=== PATIENT | female | born 1945 | race Hispanic/Latino ===

== ENCOUNTER 2017-07-29 06:50 | Day surgery (SDC) | payer OTHER ==
[~2017-07-29] VITALS: Ht 152.4 cm; Wt 72.8 kg
[~2017-07-29 06:50] MED LIST: AEC81 PO; AMLO5TAB2 PO; CETI10CA5 PO; CHOL500051 PO; LEVO50TA11 PO; NAPR220T57 PO; OMEG-138 PO; QUIN40TA19 PO; SODIUM CHLORIDE 0.9% 1000ML 1,000 ML IV ONE
[2017-07-29 07:13] VITALS: BP 150/83
[2017-07-29 08:41] VITALS: BP 116/77
== END 2017-07-29 09:15 | disposition home or self-care (01) ==
LOC: DAH 06:50
PROVIDERS: ATTEND Internal Medicine Gastroenterology
DX: R19.5 Other fecal abnormalities (principal); K57.30 Diverticulosis of large intestine without perforation or abscess without bleeding; I10 Essential (primary) hypertension; E03.9 Hypothyroidism, unspecified; M19.90 Unspecified osteoarthritis, unspecified site; E66.9 Obesity, unspecified; Z68.31 Body mass index [BMI] 31.0-31.9, adult; Z86.73 Personal history of transient ischemic attack (TIA), and cerebral infarction without residual deficits; Z79.899 Other long term (current) drug therapy; Z90.49 Acquired absence of other specified parts of digestive tract
CPT/HCPCS: 45378; 93005; A4606; J7030

== ENCOUNTER 2017-11-17 11:39 | Observation (INO) | payer OTHER ==
[~2017-11-17] VITALS: Ht 149.9 cm; Wt 71.9 kg
[~2017-11-17 11:39] MED LIST changes: -SODIUM CHLORIDE 0.9% 1000ML 1,000 ML IV ONE
[2017-11-17] MEDS ORDERED: ACETAMINOPHEN 325 MG TAB ONE (11:58)
[2017-11-17 14:06] LABS: BASOPHILS % (AUTO) 0.4 % (0.0-5.0); EOSINOPHILS % (AUTO) 0.2 % (0.0-8.0); LYMPHOCYTES % (AUTO) 11.5 % (21.0-51.0); MEAN CORPUSCULAR HEMOGLOBIN 27.1 pg (27.0-33.0); MEAN CORPUSCULAR HGB CONC 34.1 g/dL (32.0-36.0); MEAN CORPUSCULAR VOLUME 79.7 fL (79-99); MONOCYTES % (AUTO) 6.2 % (3.0-13.0); NEUTROPHILS % (AUTO) 81.7 % (40.0-77.0); PLATELET COUNT (AUTO) 264 K/uL (130-400); RED BLOOD CELL COUNT(AUTO) 4.65 MIL/uL (4.00-5.50); RED CELL DISTRIBUTION WIDTH 14.8 % (11.0-15.5)
[2017-11-17 14:17] LABS: CREATININE 0.8 mg/dL (0.5-1.5); POTASSIUM 3.9 mmol/L (3.5-5.1)
[2017-11-17 14:22] LABS: ALBUMIN 3.5 g/dL (3.5-5.0); BILIRUBIN,TOTAL 0.2 mg/dL (0.2-1.0); TOTAL PROTEIN, SERUM 7.6 g/dL (6.0-8.3)
[2017-11-17 14:47] LABS: INR 1.05 (0.85-1.15); PARTIAL THROMBOPLASTIN TIME 27.8 SEC (26.3-35.5)
[2017-11-17 20:53] VITALS: BP 143/76
[2017-11-17] MEDS ORDERED: ATOR10 PO (21:59)
[2017-11-17] MEDS ORDERED: PNEUMOCOCCAL VACCINE POLYVALENT 0.5 ML/VIAL [PPV] IM ONE (23:00)
[2017-11-17 23:52] VITALS: BP 151/73
[2017-11-18 03:46] VITALS: BP 134/77
[2017-11-18 07:00] VITALS: BP 142/67
[2017-11-18 12:00] VITALS: BP 135/73
[2017-11-18 16:39] VITALS: BP 139/72
[2017-11-18] MEDS ORDERED: PNEUMOCOCCAL VACCINE POLYVALENT 0.5 ML/VIAL [PPV] ONE (18:05)
== END 2017-11-18 18:25 | disposition home or self-care (01) ==
LOC: EDH 11:39 → EDHIP 13:48 → 3AH 20:53
PROVIDERS: ADMIT Family Medicine; ATTEND Family Medicine
DX: S06.6X9A Traumatic subarachnoid hemorrhage with loss of consciousness of unspecified duration, initial encounter (principal); S06.2X9A Diffuse traumatic brain injury with loss of consciousness of unspecified duration, initial encounter; W07.XXXA Fall from chair, initial encounter; E03.9 Hypothyroidism, unspecified; E55.9 Vitamin D deficiency, unspecified; E78.5 Hyperlipidemia, unspecified; H91.13 Presbycusis, bilateral; I10 Essential (primary) hypertension; J30.9 Allergic rhinitis, unspecified; K21.9 Gastro-esophageal reflux disease without esophagitis; M19.90 Unspecified osteoarthritis, unspecified site; M79.7 Fibromyalgia; R32 Unspecified urinary incontinence; Y93.89 Activity, other specified; Y92.89 Other specified places as the place of occurrence of the external cause; Y99.8 Other external cause status; Z86.73 Personal history of transient ischemic attack (TIA), and cerebral infarction without residual deficits; Z98.49 Cataract extraction status, unspecified eye
CPT/HCPCS: 36415; 70450 ×2; 72125; 80053; 85025; 85610; 85730; 93005; 99285; G0378 ×29; 90732

== ENCOUNTER 2019-01-19 07:00 | Day surgery (SDC) | payer OTHER ==
[2019-01-16 09:29] VITALS: BP 166/81
[2019-01-16 09:38] LABS: BASOPHILS % (AUTO) 0.6 % (0.0-5.0); EOSINOPHILS % (AUTO) 2.5 % (0.0-8.0); HEMATOCRIT 36.8 % (36-48); LYMPHOCYTES % (AUTO) 34.6 % (21.0-51.0); MEAN CORPUSCULAR HEMOGLOBIN 26.5 pg (27.0-33.0); MEAN CORPUSCULAR HGB CONC 32.7 g/dL (32.0-36.0); MEAN CORPUSCULAR VOLUME 80.8 fL (79-99); MONOCYTES % (AUTO) 12.3 % (3.0-13.0); NUCLEATED RED BLOOD CELLS 0.1 % (0.0-0.19); PLATELET COUNT (AUTO) 232 K/uL (130-400); RED BLOOD CELL COUNT(AUTO) 4.56 MIL/uL (4.00-5.50); RED CELL DISTRIBUTION WIDTH 15.8 % (11.0-15.5); WHITE BLOOD COUNT (AUTO) 3.4 K/uL (4.8-10.8)
[2019-01-16 09:41] LABS: APPEARANCE,URINE Clear (CLEAR); BILIRUBIN,URINE Negative (NEGATIVE); COLOR,URINE Yellow (YELLOW); GLUCOSE, URINE (UA) Negative (NEGATIVE); KETONES,URINE Negative (NEGATIVE); LEUKOCYTE ESTERASE ,URINE Moderate (NEGATIVE); NITRATE,URINE Negative (NEGATIVE); OCCULT BLOOD,URINE Negative (NEGATIVE); PH,URINE 5.5 (5.0-8.0); PROTEIN,URINE Negative (NEGATIVE); UROBILINOGEN,URINE 0.2 mg/dL (0.2-1.0)
[2019-01-16 09:45] LABS: CREATININE 0.7 mg/dL (0.5-1.5); POTASSIUM 4.3 mmol/L (3.5-5.1)
[2019-01-16 09:52] LABS: BACTERIA,URINE Rare /HPF (None Seen); RBC,URINE 0-1 /HPF (0-1)
--- NOTE | 2019-01-16 09:58 | NUR ---
EKG INFORMED DR. SMITH OF ABNORMAL EKG. NO ORDERS GIVEN. PROCEED WITH PLANNED PROCEDURE.
--- NOTE | 2019-01-18 12:01 | NUR ---
faxed over labs to doctor [facility] office , pending new orders
[2019-01-19] VITALS (16 sets, daily range): BP systolic 103–155; BP diastolic 49–73
[~2019-01-19] VITALS: Ht 153.7 cm; Wt 75.3 kg
[2019-01-19] MEDS: CEFTRIAXONE SODIUM 1 GM IVP SCH ×2 (06:00→09:55)
[~2019-01-19 07:00] MED LIST changes: -AMLO5TAB2 PO; +AMLO5TAB9 PO; +ATOR10 PO; +BOTULINUM TOXIN TYPE A 100 UNITS/VIAL INJ SCH; -CETI10CA5 PO; -CHOL500051 PO; -NAPR220T57 PO; -OMEG-138 PO
[2019-01-19] MEDS ORDERED: LACTATED RINGERS 1000ML 1,000 ML IV ONE (08:10)
--- NOTE | 2019-01-19 08:34 | NUR ---
abt and sterile water taken with pt to or
[2019-01-19] MEDS ORDERED: PROPOFOL 10 MG/ML 20ML VIAL IV ONE (10:00)
[2019-01-19] MEDS ORDERED: FENTANYL CITRATE PF 50 MCG/1 ML 2ML VIAL ONE (10:00)
[2019-01-19] MEDS ORDERED: ONDANSETRON HCL 4 MG/2 ML VIAL ONE (10:01)
--- NOTE | 2019-01-19 11:25 | NUR ---
post op received pt from [facility], s/p cystoscopy botox injections, pt voided on arrival. pt awake and alert. denied any pain or discomforts. vs stable on arrival.
--- NOTE | 2019-01-19 11:48 | NUR ---
dc dc instructions given to pt spouse with rx, instructed to f/u with dr batista. and on new med regimen. verbalized understanding.
--- NOTE | 2019-01-19 11:50 | NUR ---
dc pt dc home via wc/ no distress noted. denied any pain or discomforts. accompanied by spouse
== END 2019-01-19 11:50 | disposition home or self-care (01) ==
LOC: DAH 07:00
PROVIDERS: ATTEND Urology
DX: N39.41 Urge incontinence (principal); I10 Essential (primary) hypertension; M19.90 Unspecified osteoarthritis, unspecified site; E66.9 Obesity, unspecified; Z87.440 Personal history of urinary (tract) infections; E03.9 Hypothyroidism, unspecified; Z86.73 Personal history of transient ischemic attack (TIA), and cerebral infarction without residual deficits; Z90.710 Acquired absence of both cervix and uterus; Z90.49 Acquired absence of other specified parts of digestive tract; Z98.890 Other specified postprocedural states; Z68.31 Body mass index [BMI] 31.0-31.9, adult; Z79.82 Long term (current) use of aspirin; Z79.899 Other long term (current) drug therapy; Z82.49 Family history of ischemic heart disease and other diseases of the circulatory system; Z83.3 Family history of diabetes mellitus
CPT/HCPCS: 36415; 52287; 80048; 81001; 85025; 87088; 93005; A4215; A4358; A4606; J0585; J0696; J2405; J2704; J3010; J7120 ×2

== ENCOUNTER → 2019-11-08 | Outpatient (CLI) | payer OTHER ==
[~2019-11-08] MED LIST changes: -BOTULINUM TOXIN TYPE A 100 UNITS/VIAL INJ SCH
== END | disposition home or self-care (01) ==
LOC: RAH 12:58
PROVIDERS: ATTEND Urology
DX: N39.0 Urinary tract infection, site not specified (principal); N20.0 Calculus of kidney
CPT/HCPCS: 76770

== ENCOUNTER → 2020-01-29 | Outpatient (CLI) | payer OTHER | END | disposition home or self-care (01) | LOC: RAH 08:20 | PROVIDERS: ATTEND Urology | DX: K57.30 Diverticulosis of large intestine without perforation or abscess without bleeding (principal); D17.9 Benign lipomatous neoplasm, unspecified; R31.9 Hematuria, unspecified; J98.11 Atelectasis; M47.815 Spondylosis without myelopathy or radiculopathy, thoracolumbar region | CPT/HCPCS: 74176 ==

== ENCOUNTER → 2022-11-27 | Outpatient (CLI) | payer OTHER ==
[~2022-11-27] MED LIST changes: +AMLO-257 PO; -AMLO5TAB9 PO; -QUIN40TA19 PO; +QUIN40TA37 PO
== END | disposition home or self-care (01) ==
LOC: RAH 10:00
PROVIDERS: ATTEND Internal Medicine
DX: M25.512 Pain in left shoulder (principal); M25.562 Pain in left knee
CPT/HCPCS: 73030; 73560